=== PATIENT | female | born 1980 | race Caucasian/White ===

== ENCOUNTER → 2018-02-01 | Outpatient (CLI) | payer OTHER ==
[~2018-02-01] MED LIST: ASPI-770 PO; HEPA50004 SQ; OXYC-302 PO; PREN1TAB56 PO; folic acid PO
== END | disposition home or self-care (01) ==
LOC: CFH 12:04
PROVIDERS: ATTEND Family Medicine
DX: N60.29 Fibroadenosis of unspecified breast (principal); Z78.9 Other specified health status
CPT/HCPCS: 76642; 77066